=== PATIENT | female | born 1995 | race Native Hawaiian/Other Pacific Islander ===

== ENCOUNTER 2016-12-29 11:23 | Emergency (ER) | payer OTHER ==
[2016-12-29 11:38] VITALS: O2SAT 98
[2016-12-29] MEDS ORDERED: MOTRIN 600 MG PO ONE (11:38)
[2016-12-29] MEDS ORDERED: BACIGUENT PACKET TP ONE (11:38)
[2016-12-29] MEDS ORDERED: BACIGUENT PACKET ONE (11:55)
[2016-12-29] MEDS ORDERED: MOTRIN 600 MG ONE (11:55)
--- NOTE | 2016-12-29 12:11 | ERPHSYRPT ---
- History of Present Illness Time Seen by Provider: 12/29/16 11:33 Source: patient Patient Subjective Stated Complaint: pt states she fell off a step last night 2100. pt c/o pain to left knee. Triage Nursing Assessment: pt pink, warm, dry. abrasion noted to left knee and right lower leg. pedal pulses strong. no deformity, swelling or bruising noted to left kness. pt ambulated into ER without difficulty. Physician History: CC: right leg injury Hx: 21 y/o patient slipped on step last night. She has scrapes to the leg. Pain in right knee. Tetanus vaccine up to date. Pain moderate. No neck or back pain. No N/T/W. LMP 3 months ago- irregular. Lower Extremities Pain: knee: right Allergies/Adverse Reactions: No Known Drug Allergies Allergy (Unverified 12/29/16 11:53) Hx Tetanus, Diphtheria Vaccination/Date Given: Yes (up to date) Hx Influenza Vaccination/Date Given: No Hx Pneumococcal Vaccination/Date Given: No Immunizations Up to Date: Yes - Review of Systems Constitutional: No Symptoms Respiratory: No Dyspnea Cardiac: No Chest Pain Abdominal/Gastrointestinal: No Abdominal Pain, No Nausea, No Vomiting Musculoskeletal: Joint Pain (right knee/leg), No Back Pain, No Neck Pain Skin: Skin Lesions (abrasions) Neurological: No Focal Weakness, No Parasthesia - Past Medical History Pertinent Past Medical History: No - Past Surgical History Past Surgical History: No - Social History Smoking Status: Never smoker Exposure to second hand smoke: No Drug Use: none Patient Lives Alone: No - Female History Hx Last Menstrual Period: amenorrhea - Nursing Vital Signs Nursing Vital Signs: Initial Vital Signs Temperature 98.2 F 12/29/16 11:30 Pulse Rate 82 12/29/16 11:30 Respiratory Rate 18 12/29/16 11:30 Blood Pressure 127/89 12/29/16 11:30 O2 Sat by Pulse Oximetry 98 12/29/16 11:30 Pain Scale Pain Intensity 9 - Physical Exam General Appearance: alert Eyes, Ears, Nose, Throat Exam: normal ENT inspection Neck Exam: non-tender, supple Cardiovascular/Respiratory Exam: normal breath sounds, regular rate/rhythm Hips Exam: bilateral: non-tender, normal inspection Knees Exam: right knee: bone tenderness, left knee: normal inspection Ankle Exam: bilateral ankle: non-tender, normal inspection Foot Exam: bilateral foot: non-tender, normal inspection Neuro/Tendon Exam: normal sensation, normal motor functions Mental Status Exam: alert, oriented x 3, cooperative Skin Exam: warm, dry, No rash SpO2 Interpretation: normal SpO2: 98 Oxygen Delivery: Room Air - Course Nursing assessment & vital signs reviewed: Yes - Radiology Exams right knee/lower X-ray Interpretation: Teleradiologist Report, Negative, No Fracture Ordered Tests: Active Orders 24 hr Category Date Time Status Richard Bandage Application -[facility] STAT Care 12/29/16 12:19 Active Cold Application STAT Care 12/29/16 11:38 Active Wound Care STAT Care 12/29/16 11:38 Active KNEE (1 OR 2 VIEW) Stat Exams 12/29/16 11:37 Completed LOWER LEG Stat Exams 12/29/16 11:37 Completed HCG,QUALITATIVE URINE Stat Lab 12/29/16 11:37 Completed Medication Summary Discontinued Medications Generic Name Dose Route Start Last Admin Trade Name Freq PRN Reason Stop Dose Admin Bacitracin 0.9 gm 12/29/16 11:38 12/29/16 12:07 Baciguent Packet TP 12/29/16 11:39 0.9 gm STAT ONE Administration Bacitracin Confirm 12/29/16 11:55 Baciguent Packet Administered 12/29/16 11:56 Dose 1 gm .ROUTE .STK-MED ONE Ibuprofen 600 mg 12/29/16 11:38 12/29/16 12:08 Motrin 600 Mg PO 12/29/16 11:39 600 mg STAT ONE Administration Ibuprofen Confirm 12/29/16 11:55 Motrin 600 Mg Administered 12/29/16 11:56 Dose 600 mg .ROUTE .STK-MED ONE Lab/Rad Data: Laboratory Results 12/29/16 Range/Units 11:37 Urine HCG, Qual NEGATIVE (Negative) - Progress Progress Note: 12/29/16 12:23 Instr given. Counseled pt/family regarding: diagnosis, need for follow-up, rad results - Departure Time of Disposition: 12:23 Departure Disposition: Home Clinical Impression: Abrasion, right lower leg, initial encounter Right knee sprain Qualifiers: Encounter type: initial encounter Involved ligament of knee: unspecified ligament Qualified Code(s): S83.91XA - Sprain of unspecified site of right knee , initial encounter Condition: Stable Critical Care Time: No Referrals: DOCTOR,NO FAMILY [Primary Care Provider] - Instructions: Abrasion, Knee Sprain, Apply an Richard Wrap Additional Instructions: SPRAINS/STRAINS/CONTUSIONS 1. Rest the affected area as much as possible for the next few days. 2. Apply ice to the affected area for 20-30 minutes at a time, several times a day. 3. If you receive an elastic wrap, wear it only while awake for comfort and support. Re-wrap the elastic wrap if it feels too tight or too loose. 4. If swelling is present, elevate the affected part above the level of the heart for at least 2 to 3 days. 5. Use splints, slings, or crutches as instructed. 6. Watch for severe swelling, coldness, numbness, and discoloration of the fingers and toes. See your family physician or return to the emergency department if any of these are noted. Rx ibuprofen. Keep abrasion clean and dry. Richard wrap to right knee. Prescriptions: Ibuprofen 600 mg PO Q6H PRN PRN #24 tablet PRN Reason: Pain
--- NOTE | 2016-12-29 12:12 | XRAY ---
Indication: Pain following fall. Comparison: None Portable AP/lateral right knee demonstrates normal bones, articulation, and soft tissues.
--- NOTE | 2016-12-29 12:14 | XRAY ---
Indication: Pain following fall. Comparison: None Portable AP/lateral right lower leg demonstrates normal bones, articulation, and soft tissues.
[2016-12-29 12:57] VITALS: BP 98/49; PULSE 70
== END 2016-12-29 12:56 | disposition home or self-care (01) ==
LOC: ED 11:23
DX: S80.811A Abrasion, right lower leg, initial encounter (principal); S83.91XA Sprain of unspecified site of right knee, initial encounter; M25.561 Pain in right knee; W10.9XXA Fall (on) (from) unspecified stairs and steps, initial encounter
CPT/HCPCS: 73560; 73590; 84703; 99283; A9270-GY